=== PATIENT | male | born 1940 | race Caucasian/White ===

== ENCOUNTER → 2016-12-01 13:37 | Outpatient (CLI) | payer MEDICARE | END | disposition home or self-care (01) | LOC: D.US 13:37 | DX: J44.9 Chronic obstructive pulmonary disease, unspecified (principal); I65.29 Occlusion and stenosis of unspecified carotid artery ==

== ENCOUNTER 2017-01-21 10:58 | Outpatient (CLI) | payer MEDICARE ==
[~2017-01-21] VITALS: Ht 182.9 cm; Wt 86.4 kg
--- NOTE | ~2017-01-21 | HEMODYNAMI ---
PATIENT:VENUS GRIFFITHS MEDICAL RECORD: [id number] : 42 LOCATION:[facility] ADMISSION DATE: 01/21/17 Generatedon:01/21/201714:25 Patient name: VENUS GRIFFITHS Patient #: [id number] SSN: D OB: 1940 Date of study: 01/21/2017 Page: Of Hemodynamic Procedure Report Patient Data Patient Demographics Procedure consent was obtained First Name: VENUS Gender: Male Last Name: AYE : 1940 [facility] Initial: ROME Age: 76 year(s) Patient #: [id number] Race: Unknown Additional ID: [id number] Contact details [address]: [address] [place] [address] State: [place] City: [place] Zip code: [address] Past Medical History Allergies: No known allergies Admission Admission Data Admission Date: 01/21/2017 Admission Time: 10:58 Lab Results Lab Result Date: 01/21/2017 Lab Result Time: 0:00 Biochemistry Name Units Result Min Max BUN mg/dl 18 --(---*)-- 7 18 Creatinine mg/dl 0.9 --(-*--)-- 0.6 1.3 CBC Name Units Result Min Max Hemoglobin g/dl 15.9 --(--*-)-- 13.5 17.5 Procedure Procedure Types Cath Procedure Diagnostic Procedure C Coronaries w/Grafts Aortic Root Angiography Miscellaneous Procedures Moderate Sedation up to 45 minutes Procedure Description Procedure Date Procedure Date: 01/21/2017 Procedure Start Time: 13:55 Procedure End Time: 14:24 Procedure Staff Name Function Navin Fernández MD Performing Physician Natalie Bernal RN Nurse Darshan Gillespie RT Monitor Bryson Ovalle RT Scrub Caesar Montano RN Casing Fluid Tender Procedure Data Cath Procedure Fluoroscopy Diagnostic fluoroscopy Total fluoroscopy Time: 7.1 time: 7.1 min min Diagnostic fluoroscopy Total fluoroscopy dose: 850 dose: 850 mGy mGy Contrast Material Contrast Material Type Amount (ml) Isovue 300 139 Entry Location Entry Primary Successful Side Size Upsize Upsize Entry Closure Succes sful Closure Location (Fr) 1 (Fr) 2 (Fr) Remarks Device Remarks Femoral Right 5 Fr Exoseal artery Diagnostic catheters Device Type Used For End Catheter Placement Cordis 5Fr JL 4.0 Left Coronary Catheter (MP) Angiography Diagnostic Infinity 5Fr SVG Angiography IM catheter Diagnostic Infinity 5Fr SVG Angiography AR MOD Catheter Diagnostic Infinity 5Fr SVG Angiography AR 2 MOD catheter Cordis 5Fr Pigtail LV Angiography Catheter (MP) Procedure Complications No complications Procedure Medications Medication Administration Route Dosage Oxygen NC 2 l/min Heparin Flush Bag added to field 2 bags (1000units/500ml NS) Lidocaine 2% added to field 20 Versed I.V. 1 mg Fentanyl I.V. 50 mcg Versed I.V. 1 mg Fentanyl I.V. 50 mcg Fentanyl I.V. 50 mcg Hemodynamics Rest HGB: 15.9 (g/dl) Heart Rate: 49 (bpm) Snapshots Pre Cath Intra NCS Post Cath Vital Signs Time Heart Resp SPO2 NIBP (mmHg) Rhythm Pain Sedation Rate (ipm) (%) Status Level (bpm) 13:37:21 49 16 100 180/69(144) SB 0 (11) 10(A) , No pain 13:41:53 51 22 100 172/69(137) SB 0 (11) 10(A) , No pain 13:46:52 49 16 100 Measuring SB 0 (11) 10(A) , No pain 13:47:21 56 16 100 155/75(119) SB 0 (11) 10(A) , No pain 13:51:47 51 16 100 162/61(107) SB 0 (11) 10(A) , No pain 13:56:18 56 16 100 151/60(115) SB 0 (11) 9(A) , No pain 14:00:38 51 16 100 145/65(108) SB 0 (11) 9(A) , No pain 14:05:37 53 16 100 Measuring SB 0 (11) 9(A) , No pain 14:05:57 55 16 100 149/60(113) SB 0 (11) 9(A) , No pain 14:10:22 56 19 100 135/60(108) SB 0 (11) 9(A) , No pain 14:14:40 56 16 100 153/64(115) SB 0 (11) 9(A) , No pain 14:19:02 51 12 100 141/60(109) SB 0 (11) 9(A) , No pain Medications Time Medication Route Dose Verified Delivered Reason Notes Effec tiveness by by 13:38:50 Oxygen NC 2 Navin Natalie Per l/min Pradeep Bernal RN physician 13:38:57 Heparin Flush added 2 Navin Natalie used for Bag to bags Pradeep Bernal RN procedure (1000units/500ml field NS) 13:39:04 Lidocaine 2% added 20ml Navin Natalie used for to vial Pradeep Bernal RN procedure field 13:47:05 Versed I.V. 1 mg Navin Natalie for Pradeep Bernal RN sedation 13:47:11 Fentanyl I.V. 50 Navin Natalie for mcg Pradeep Bernal RN sedation 13:51:52 Versed I.V. 1 mg Navin Natalie for Pradeep Bernal RN sedation 13:51:55 Fentanyl I.V. 50 Navin Natalie for mcg Pradeep Bernal RN sedation 13:54:14 Fentanyl I.V. 50 Navin Natalie for mcg Pradeep Bernal RN sedation Procedure Log Time Note 13:15:59 Caesar Montano RN sent for patient. Start room use. 13:24:01 Time tracking: Regular hours 13:24:05 Plan of Care:Hemodynamics will remain stable., Cardiac rhythm will remain stable., Comfort level will be maintained., Respiratory function will remain adequate., Patient/ family verbilizes understanding of procedure., Procedure tolerated without complication., Recovers from procedure without complications.. 13:28:25 Patient received from Pre/Post Procedure Room to [facility] 2 Alert and oriented. Tansferred to table in Supine position. 13:28:28 Warm blankets applied, and shawn hugger turned on for patient comfort. 13:28:29 Correct patient and procedure confirmed by team. 13:28:30 Signed procedure consent form obtained from patient. 13:28:31 ECG and BP/O2 sat monitors applied to patient. 13:36:01 Vital chart was started 13:38:50 Oxygen 2 l/min NC was administered by Natalie Ponce RN; Per physician; 13:38:57 Heparin Flush Bag (1000units/500ml NS) 2 bags added to field was administered by Natalie Bernal RN; used for procedure; 13:39:04 Lidocaine 2% 20ml vial added to field was administered by Natalie Bernal RN; used for procedure; 13:41:09 Baseline sample Acquired. 13:41:12 Rhythm: sinus rhythm 13:41:13 Full Disclosure recording started 13:41:40 H&P Date Dictated: 01/01/2017 Within 30 days and on chart., H&P Addendum completed by physician on day of procedure. (MUST COMPLETE FOR ALL OUTPATIENTS). 13:41:41 Pre-procedure instructions explained to patient. 13:41:42 Pre-op teaching completed and patient verbalized understanding. 13:41:48 Family unavailable. 13:41:49 Patient NPO since Midnight. 13:41:56 Patient allergic to No known allergies 13:41:59 Is the patient allergic to Iodine/contrast media? No. 13:42:03 Is patient on blood thinner?Yes 13:42:13 Patient diabetic? No. 13:42:14 ----Pre-sedation anethsthesia assessment.---- 13:42:16 Previous problem with sedation/anesthesia? No ? 13:42:17 Snore? Yes 13:45:15 Sleep apnea? No 13:45:18 Deviated septum? No 13:45:20 Opens mouth fully? Yes 13:45:21 Sticks out tongue? Yes 13:45:28 Airway obstruction? Yes COPD 13:45:31 Dentures? No ? 13:45:34 Pre procedure: right dorsailis pedis pulse 2+ Normal; easily identifiable; not easily obliterated 13:45:37 Patient pain scale 0/10 ?. 13:45:46 IV patent on arrival in left forearm with 0.9% NaCl at 10ml/hr. 13:46:09 Lab Result : BUN 18 mg/dl 13:46:09 Lab Result : Creatinine 0.9 mg/dl 13:46:09 Lab Result : Hemoglobin 15.9 g/dl 13:46:12 Lab results completed and on chart. 13:46:15 Right groin area was prepped with chlora-prep and draped in sterile fashion 13:46:15 Alarms reviewed by Vernon Lr 13:46:16 Sharps counted by scrub and verified by R.N. 13:46:18 --------ALL STOP TIME OUT------ 13:46:18 Final Timeout: patient, procedure, and site verified with staff and physician. All members of the team are in agreement. 13:46:20 Right groin site verified by team. 13:46:22 Physical assessment completed. ASA score P 2 - A patient with mild systemic disease as per Navin Fernández MD. 13:46:26 Sedation plan: IV Moderate Sedation Versed, Fentanyl 13:47:05 Versed 1 mg I.V. was administered by Natalie Bernal RN; for sedation; 13:47:11 Fentanyl 50 mcg I.V. was administered by Natalie Bernal RN; for sedation; 13:47:51 Use device set Femoral Dx 13:47:53 Acist Syringe opened to sterile field. 13:47:53 Bag Decanter opened to sterile field. 13:47:53 Medline Cath Pack opened to sterile field. 13:47:54 Terumo 5Fr Penhook Sheath opened to sterile field. 13:47:54 St Wong 260cm J .035 wire opened to sterile field. 13:47:56 Acist Hand Control opened to sterile field. 13:47:56 Acist Manifold opened to sterile field. 13:47:57 Diagnostic Infinity 5Fr Multipack catheter opened to sterile field. 13:47:57 Tegaderm 4 x 4 opened to sterile field. 13:51:52 Versed 1 mg I.V. was administered by Natalie Bernal RN; for sedation; 13:51:55 Fentanyl 50 mcg I.V. was administered by Natalie Bernal RN; for sedation; 13:54:14 Fentanyl 50 mcg I.V. was administered by Natalie Bernal RN; for sedation; 13:55:30 Procedure started. 13:55:40 Local anesthetic to right femoral artery with Lidocaine 2% by Navin Fernández MD.INITIAL ACCESS ONLY 13:56:05 A 5 Fr sheath was inserted into the Right Femoral artery 13:56:15 Zero performed for pressure channel P1 13:57:11 A Cordis 5Fr JL 4.0 Catheter () was advanced over the wire and used for Left Coronary Angiography. 13:58:34 LCA angiography performed. 13:58:45 Procedure type changed to Cath procedure, Diagnostic procedure, LHC, Coronaries w/Grafts, Aortic Root Angiography, Miscellaneous Procedures, Moderate Sedation up to 45 minutes 13:58:57 Catheter removed. 14:00:01 A Diagnostic Infinity 5Fr IM catheter was advanced over the wire and used for SVG Angiography. 14:00:06 YANCEY to LAD angiography performed. 14:03:07 Catheter removed. 14:03:17 A Diagnostic Infinity 5Fr AR MOD Catheter was advanced over the wire and used for SVG Angiography. 14:06:02 RCA angiography performed. 14:06:03 Catheter removed. 14:06:39 A Diagnostic Infinity 5Fr AR 2 MOD catheter was advanced over the wire and used for SVG Angiography. 14:08:19 Catheter removed. 14:08:30 A Cordis 5Fr Pigtail Catheter (MP) was advanced over the wire and used for LV Angiography. 14:09:52 Aortic Root visualized 14:12:06 Catheter removed. 14:12:27 Cordis 5Fr Exoseal opened to sterile field. 14:13:58 5 Fr IM guide catheter was inserted over the wire 14:15:41 YANCEY to LAD angiography performed. 14:15:42 Catheter removed. 14:15:58 Contrast amount:Isovue 300 139ml. 14:16:07 Sheath removed intact; hemostasis achieved with Exoseal to the Right Femoral artery. 14:16:09 Procedure ended.(Physican Out) 14:16:27 Fluoroscopy time 07.10 minutes. 14:16:33 Fluoroscopy dose: 850 mGy 14:16:33 Flurop Dose total: 850 14:16:35 Sharps counted by scrub and verified by R.N. 14:16:36 Insertion/operative site no bleeding no hematoma. 14:16:39 Post-op/insertion site Right Femoral artery dressed using a 4 x 4 and Tegaderm. 14:16:42 Post right femoral artery:stable 14:16:44 Post Procedure Pulses reassessed and unchanged 14:16:48 Post procedure rhythm: sinus rhythm 14:16:49 Post procedure instruction explained to patient.Patient verbalizes understanding. 14:17:24 Procedure and supply charges have been captured, reviewed, submitted and are correct. 14:18:09 Procedure Complication : No complications 14:18:11 Vital chart was stopped 14:18:12 See physician's report for complete and final results. 14:18:16 Report given to Pre/Post Procedure Room. 14:18:20 Patient transfered to Pre/Post Procedure Room with Stretcher. 14:24:33 Procedure ended. 14:24:33 Full Disclosure recording stopped 14:24:36 End room use (Document Last) Device Usage Item Name Manufacture Quantity Catalog Hospital Part Current Minimal Lo t# / Number Charge Number Stock Stock Serial# Code Acist Acist 1 34466 661882 750871 669355 20 Syringe [employer] Bag Microtek 1 2002S 359928 33730 079538 5 Decanter [employer] Medline Cardinal 1 [id number] 694829 21349 811343 5 Cath Pack Health Terumo 5Fr Terumo 1 [id number] 662446 237806 425926 [address] St Wong 1 [id number] 353372 638401 654293 30 260cm J .035 wire Acist Hand Acist 1 72080 170078 583890 722645 5 Control [employer] Inc Acist Acist 1 43587 365670 653660 814713 5 Manifold [employer] Inc Diagnostic Cardinal 1 [id number] 857971 44107 175980 30 [facility] 5Fr Multipack catheter Tegaderm 4 3M 1 1626W 762205 787123 855308 5 x 4 Cordis 5Fr Cardinal 1 325497 5 JL 4.0 Health Catheter (MP) Diagnostic Cardinal 1 [id number] 506740 891987 958121 5 [facility] 5Fr IM catheter Diagnostic Cardinal 1 [id number] 024372 165837 787968 15 [facility] 5Fr AR MOD Catheter Diagnostic Cardinal 1 [id number] 063489 806426 189282 20 [facility] [facility] 5Fr AR 2 MOD catheter Cordis 5Fr Cardinal 1 689881 5 Pigtail Health Catheter (MP) Cordis 5Fr Cardinal 1 EX500 425685 890357 652814 10 Herotainment Signature Audit [place] Stage Time Signature Unsigned Intra-Procedure 01/21/2017 Darshan Gillespie 2:25:16 PM RT(R) Signatures Monitor : Darshan Gillespie RT Signature : Date : Time : [place] [id number] [address]
[2017-01-21] MEDS ORDERED: SPIRIVA18 MCG INH (11:21)
[2017-01-21] MEDS ORDERED: ACETAMINOPHEN325 MG PO (11:22)
[2017-01-21] MEDS ORDERED: LIPITOR40 MG PO (11:22)
[2017-01-21] MEDS ORDERED: PROVENTIL/2.5 MG/3 M INH (11:22)
[2017-01-21] MEDS ORDERED: GLUCOSAMINE & C1 CAP PO (11:23)
[2017-01-21] MEDS ORDERED: BAYER CHEWABLE81 MG PO (11:23)
[2017-01-21 11:38] VITALS: BP 168/48; Ht 182.9 cm; Wt 86.4 kg
[2017-01-21 11:45] LABS: BASOPHILS 0.3 % (0-2); EOSINOPHILS 1.9 % (0-7); HEMATOCRIT 47.5 % (42.0-54.0); HEMOGLOBIN 15.9 g/dL (13.5-17.5); IMMATURE GRANULOCYTES 0.3 % (0-5); LYMPHOCYTES 26.9 % (15-50); MCH 30.9 pg (26.0-34.0); MCHC 33.5 g/dL (31.0-37.0); MCV 92.4 fL (80.0-100.0); MEAN PLATELET VOLUME 10.9 fL (7.4-10.4); MONOCYTES 7.5 % (2-11); NEUTROPHILS 63.1 % (40-80); PLATELET COUNT 148 10x3/uL (130-400); RBC 5.14 10x6/uL (4.20-6.10); RDW 13.7 % (11.5-14.5); WBC 7.8 10x3/uL (4.8-10.8)
[2017-01-21 12:02] LABS: CALC OSMOLALITY 290 mosm/kg (275-300); CALCIUM 9.6 mg/dL (8.5-10.1); CARBON DIOXIDE 29.4 mmol/L (21.0-32.0); CHLORIDE - SERUM 109 mmol/L (98-107); CREATININE - SERUM 0.9 mg/dL (0.6-1.3); GLUCOSE 95 mg/dL (74-106); POTASSIUM - SERUM 4.9 mmol/L (3.5-5.1); SODIUM 145 mmol/L (136-145); UREA NITROGEN 18 mg/dL (7-18); eGFR NON AFRICAN AMERICAN 87 mL/min (90-120)
--- NOTE | 2017-01-21 14:41 | NUR ---
RECIEVED TO ROOM VIA STRETCHER FROM COPIER TECHNICIAN WITH 5 FR EXOSEAL R/GROIN CDI NO BLEEDING NO HEMATOMA NOTED. REPORTS OF A CLEAN CATH WITH A CONSULT FOR DR FERRARA IN PROGRESS. VSS WITH CHEST PAIN DENIED WILL MONITOR
--- NOTE | 2017-01-21 16:03 | NUR ---
REPOSITIONED TO SITTING WITH HOB UP 30 DEGREES. 5 FR EXOSEAL R/GROIN CDI NO BLEEDING NO HEMATOMA NOTED. SANDWICH AND SODA TO BEDSIDE
--- NOTE | 2017-01-21 16:21 | NUR ---
PIV REMOVED WITH DRESSING APPLIED 5 FR EXOSEAL R/GROIN CDI NO BLEEDING NO HEMATOMA NOTED. PATIENT UP TO GET DRESSED FOR DISCHARGE WITH CHEST PAIN DENIED
--- NOTE | 2017-01-21 16:34 | NUR ---
VERBAL AND WRITTEN DISCHARGE GONE OVER WITH PATIENT. LEFT VIA WC TO PARKING FOR TO DRIVE HOME CHEST PAIN DENIED WITH R/GROIN CDI
== END 2017-01-21 16:36 | disposition home or self-care (01) ==
LOC: D.CATH 10:58
PROVIDERS: Internal Medicine Cardiovascular Disease
DX: I25.10 Atherosclerotic heart disease of native coronary artery without angina pectoris (principal); I35.1 Nonrheumatic aortic (valve) insufficiency; I70.0 Atherosclerosis of aorta; Z01.812 Encounter for preprocedural laboratory examination

== ENCOUNTER → 2017-10-23 08:11 | Outpatient (CLI) | payer MEDICARE ==
[2017-01-21 11:38] VITALS: BMI 25.8
[~2017-10-23 08:11] MED LIST: ACETAMINOPHEN325 MG PO; BAYER CHEWABLE81 MG PO; GLUCOSAMINE & C1 CAP PO; LIPITOR40 MG PO; PROVENTIL/2.5 MG/3 M INH; SPIRIVA18 MCG INH
== END | disposition home or self-care (01) ==
LOC: D.RT 08:11
DX: J44.9 Chronic obstructive pulmonary disease, unspecified (principal)

== ENCOUNTER 2018-02-19 08:48 | Emergency (ER) | payer MEDICARE ==
[~2018-02-19] VITALS: Ht 182.9 cm; Wt 84.1 kg
[2018-02-19 08:49] VITALS: Ht 182.9 cm; Wt 84.1 kg
[2018-02-19] MEDS ORDERED: HYDROCODON-ACE1 EAC7 PO (09:09)
[2018-02-19] MEDS ORDERED: KEFLEX500 MG PO (09:10)
[2018-02-19 11:01] VITALS: BP 170/86
== END 2018-02-19 11:05 | disposition home or self-care (01) ==
LOC: D.ER 08:48
DX: Z89.022 Acquired absence of left finger(s) (principal); S68.121A Partial traumatic metacarpophalangeal amputation of left index finger, initial encounter; W27.8XXA Contact with other nonpowered hand tool, initial encounter; Y93.89 Activity, other specified; Y92.019 Unspecified place in single-family (private) house as the place of occurrence of the external cause; I10 Essential (primary) hypertension; J44.9 Chronic obstructive pulmonary disease, unspecified; F17.200 Nicotine dependence, unspecified, uncomplicated

== ENCOUNTER 2019-03-03 06:34 | Outpatient (CLI) | payer MEDICARE ==
[~2019-03-03] VITALS: Ht 182.9 cm; Wt 81.8 kg
--- NOTE | ~2019-03-03 | HEMODYNAMI ---
PATIENT:VENUS GRIFFITHS MEDICAL RECORD: [id number] : 42 LOCATION:[facility] ADMISSION DATE: 03/03/19 Generatedon:03/03/201910:55 Patient name: VENUS GRIFFITHS Patient #: [id number] SSN: [id number] : 1940 Date of study: 03/03/2019 Page: Of Hemodynamic Procedure Report Patient Data Patient Demographics Procedure consent was obtained First Name: VENUS Gender: Male Last Name: AYE : 1940 [facility] Initial: ROME Age: 78 year(s) Patient #: [id number] Race: SSN: [id number] Additional ID: [id number] Contact details Address: [address] [place] [address] State: [place] City: [place] Zip code: [address] Past Medical History Allergies: No known allergies Admission Admission Data Admission Date: 03/03/2019 Admission Time: 6:34 Arrival Date: 03/03/2019 Arrival Time: 9:00 Admit Source: Other Insurance Payor: Medicare Height (in.): 72 BSA: 2.05 (m2) Height (cm.): 182.88 BMI: 24.82 (kg/m2) Weight (lbs.): 183 Weight (kg.): 83.01 Lab Results Lab Result Date: 03/03/2019 Lab Result Time: 0:00 Biochemistry Name Units Result Min Max BUN mg/dl 18 --(---*)-- 7 18 Creatinine mg/dl 1 --(--*-)-- 0.6 1.3 CBC Name Units Result Min Max Hemoglobin g/dl 16.5 --(--*-)-- 13.5 17.5 Procedure Procedure Types Cath Procedure Diagnostic Procedure LHC LHC w/Coronaries Aortic Root Angiography Sedation Charges Moderate Sedation up to 15 minutes Procedure Description Procedure Date Procedure Date: 03/03/2019 Procedure Start Time: 10:33 Procedure End Time: 10:53 Procedure Staff Name Function Navin Fernández MD Performing Physician Carmelita Adams RT Monitor Shukri Bermeo RT Scrub Ameena Flores RN Nurse Procedure Data Cath Procedure Fluoroscopy Diagnostic fluoroscopy Total fluoroscopy Time: 5.1 time: 5.1 min min Diagnostic fluoroscopy Total fluoroscopy dose: 844 dose: 844 mGy mGy Contrast Material Contrast Material Type Amount (ml) Isovue 300 106 Entry Location Entry Primary Successful Side Size Upsize Upsize Entry Closure Succes sful Closure Location (Fr) 1 (Fr) 2 (Fr) Remarks Device Remarks Femoral Right 5 Fr Exoseal artery Estimated blood loss: 5 ml Diagnostic catheters Device Type Used For End Catheter Placement MULTIPACK JL 4.0 5Fr Left Coronary catheter Angiography DIAGNOSTIC JL 5 5Fr Left Coronary catheter ([id number]) Angiography DIAGNOSTIC AR MOD 5Fr Multi-vessel Catheter ([id number]) Angiography MULTIPACK Pigtail 5 Fr LV Angiography catheter DIAGNOSTIC IM 5Fr Multi-vessel catheter ([id number]) Angiography Procedure Complications No complications Procedure Medications Medication Administration Route Dosage 0.9% NaCl I.V. 100 ml/hr Oxygen etCO2 Nasal cannula 2 l/min Lidocaine 2% added to field 20 Heparin Flush Bag added to field 2 bags (1000units/500ml NS) Versed I.V. 2 mg Fentanyl I.V. 50 mcg Fentanyl I.V. 50 mcg Hemodynamics Rest BSA: 2.05 (m2) HGB: 16.5 (g/dl) O2 Consumption: Estimated: 223.38 (ml/min) O2 Co nsumption indexed: Estimated:108.97 (ml/min/m) Heart Rate: 55 (bpm) Snapshots Pre Cath Intra NCS Post Cath Vital Signs Time Heart Resp SPO2 etCO2 NIBP (mmHg) Rhythm Pain Sedation Rate (ipm) (%) (mmHg) Status Level (bpm) 10:16:58 55 16 99 33.7 178/66(144) SB 0 (11) 10(A) , No pain 10:21:36 50 20 100 31.4 175/60(140) SB 0 (11) 10(A) , No pain 10:26:06 51 15 99 40.5 157/61(130) SB 0 (11) 10(A) , No pain 10:30:39 52 24 99 35.9 162/53(133) SB 0 (11) 9(A) , No pain 10:35:38 49 11 99 13.5 Measuring SB 0 (11) 9(A) , No pain 10:36:05 50 16 99 1.5 151/60(115) SB 0 (11) 9(A) , No pain 10:41:04 51 12 99 36.7 Measuring SB 0 (11) 9(A) , No pain 10:41:18 53 14 98 22.4 143/52(110) SB 0 (11) 9(A) , No pain 10:45:40 59 12 99 39.7 145/57(111) SB 0 (11) 9(A) , No pain 10:50:06 58 11 99 41.2 142/54(118) SB 0 (11) 10(A) , No pain Medications Time Medication Route Dose Verified Delivered Reason Notes Eff ectiveness by by 10:15:45 0.9% NaCl I.V. 100 Navin Ameena used for ml/hr Pradeep Flores manager environmental services 10:15:52 Oxygen etCO2 2 Navin Ameena used for Nasal l/min Pradeep Flores procedure cannula RN 10:15:58 Lidocaine 2% added 20ml Navin Navin for local to vial Pradeep Fernández MD anesthetic field 10:16:02 Heparin Flush added 2 Navin Navin used for Bag to bags Pradeep Fernández MD procedure (1000units/500ml field NS) 10:22:12 Versed I.V. 2 mg Navin Ameena for Pradeep Flores sedation RN 10:22:22 Fentanyl I.V. 50 Navin Ameena for mcg Pradeep Flores sedation RN 10:27:00 Fentanyl I.V. 50 Navin Ameena for mcg Pradeep Flores sedation account analyst Log Time Note 9:59:02 Informed consent obtained and on chart 9:59:06 Diagnostic Cath Status : Elective 9:59:55 Ameena Flores RN sent for patient. Start room use. 9:59:56 Time tracking: Regular hours (M-F 7:00 - 5:00) 10:00:00 Plan of Care:Hemodynamics will remain stable., Cardiac rhythm will remain stable., Comfort level will be maintained., Respiratory function will remain adequate., Patient/ family verbilizes understanding of procedure., Procedure tolerated without complication., Recovers from procedure without complications.. 10:01:44 Patient Height : 72 inches 10:01:48 Patient Weight : 183 lbs 10:01:48 Admit Source: Other 10:05:59 Insurance Payor : Medicare 10:08:58 Arrival Date: 03/03/2019 9:00:00 AM 10:11:52 Lab Result : BUN 18 mg/dl 10:11:52 Lab Result : Hemoglobin 16.5 g/dl 10:11:52 Lab Result : Creatinine 1 mg/dl 10:12:00 Patient received from Pre/Post Procedure Room to CCL 2 Alert and oriented. Tansferred to table in Supine position. 10:12:02 Warm blankets applied, and shawn hugger turned on for patient comfort. 10:12:02 Correct patient and procedure confirmed by team. 10:12:03 ECG and BP/O2 sat monitors applied to patient. 10:15:34 Vital chart was started 10:15:45 0.9% NaCl 100 ml/hr I.V. was administered by Ameena Flores RN; used for procedure; 10:15:52 Oxygen 2 l/min etCO2 Nasal cannula was administered by Ameena Flores RN; used for procedure; 10:15:58 Baseline sample Acquired. 10:15:58 Lidocaine 2% 20ml vial added to field was administered by Navin Fernández MD; for local anesthetic; 10:16:02 Heparin Flush Bag (1000units/500ml NS) 2 bags added to field was administered by Navin Fernández MD; used for procedure; 10:16:02 Rhythm: sinus rhythm 10:16:04 Full Disclosure recording started 10:16:09 H&P Date Dictated: 03/03/2019 Within 30 days and on chart., H&P Addendum completed by physician on day of procedure. (MUST COMPLETE FOR ALL OUTPATIENTS). 10:16:10 Pre-procedure instructions explained to patient. 10:16:11 Pre-op teaching completed and patient verbalized understanding. 10:16:12 Family in waiting room. 10:16:13 Patient NPO since Midnight. 10:16:16 Is the patient allergic to Iodine/contrast media? No. 10:16:17 Was the patient premedicated? No 10:17:02 Is patient on blood thinner?No 10:17:04 Patient diabetic? No. 10:17:06 Previous problem with sedation/anesthesia? No ? 10:17:08 Snore? Yes 10:17:09 Sleep apnea? No 10:17:10 Deviated septum? No 10:17:11 Opens mouth fully? Yes 10:17:12 Sticks out tongue? Yes 10:17:14 Airway obstruction? Yes copd 10:17:18 Dentures? Yes in tight 10:17:21 Pre procedure: right dorsailis pedis pulse 2+ Normal; easily identifiable; not easily obliterated 10:17:23 Pre procedure: left dorsailis pedis pulse 2+ Normal; easily identifiable; not easily obliterated 10:17:25 Patient pain scale 0/10 ?. 10:17:31 IV patent on arrival in left forearm with 0.9% NaCl at [facility]. 10:17:33 Lab results completed and on chart. 10:17:37 Right groin area was prepped with chlora-prep and draped in sterile fashion 10:17:38 Alarms reviewed by R. N. 10:17:38 Sharps counted by scrub and verified by R.N. 10:18:14 ACC Patient presents with Symptoms unlikely to be ischemic CCS Anginal Class 2--Slight limitation of ordinary activity. 10:18:22 Procedure Status Elective Heart Cath (OP). 10:18:30 Use device set Femoral Dx 10:18:31 ACIST Syringe (51673) opened to sterile field. 10:18:32 Bag Decanter (2002S) opened to sterile field. 10:18:32 Medline Cath Pack ([id number]) opened to sterile field. 10:18:33 ACIST Hand Control (59738) opened to sterile field. 10:18:34 ACIST Manifold (55414) opened to sterile field. 10:18:34 DIAGNOSTIC Multipack 5Fr catheter set ([id number]) opened to sterile field. 10:18:34 Tegaderm 4 x 4 (1626W) opened to sterile field. 10:18:36 SHEATH 5FR [place] ([id number]) opened to sterile field. 10:18:37 DAXALD Guide Wire (841-397) opened to sterile field. 10:21:12 Physician arrived 10:21:12 --------ALL STOP TIME OUT------ 10:21:13 Final Timeout: patient, procedure, and site verified with staff and physician. All members of the team are in agreement. 10:21:15 Right groin site verified by team. 10:21:19 Fire Safety Assessment: A--An alcohol-based skin anteseptic being used preoperatively., C--Open oxygen or nitrous oxide is being used., D--An ESU, laser, or fiber-optic light is being used. 10:21:25 Physical assessment completed. ASA score P 2 - A patient with mild systemic disease as per Navin Fernández MD. 10:22:04 2) 60-89 Mildly reduced kidney function, and other findings (as for stage 1) point to kidney disease. 10:22:12 Versed 2 mg I.V. was administered by Ameena Flores RN; for sedation; 10:22:18 Maximum allowable contrast dose (3.7 X eGFR X 0.75)213 ml. 10:22:22 Fentanyl 50 mcg I.V. was administered by Ameena Flores RN; for sedation; 10::22 Sedation plan: IV Moderate Sedation Medication:Versed, Fentanyl 10:27:00 Fentanyl 50 mcg I.V. was administered by Ameena Flores RN; for sedation; 10:33:39 Procedure started. 10:33:46 Local anesthetic to right femoral artery with Lidocaine 2% by Navin Fernández MD.INITIAL ACCESS ONLY 10:36:11 A 5 Fr sheath was inserted into the Right Femoral artery 10:36:16 A MULTIPACK JL 4.0 5Fr catheter was advanced over the wire and used for Left Coronary Angiography. 10:39:05 Catheter removed. unable to cannulate vessel. 10:39:15 A DIAGNOSTIC JL 5 5Fr catheter ([id number]) was advanced over the wire and used for Left Coronary Angiography. 10:39:43 LCA angiography performed. 10:39:46 Injector settings: Ml/sec: 3, Volume: 6, 10:41:05 Catheter removed. 10:41:54 A DIAGNOSTIC AR MOD 5Fr Catheter ([id number]) was advanced over the wire and used for Multi-vessel Angiography. 10:42:06 RCA angiography performed. 10:42:12 Injector settings: Ml/sec: 3, Volume: 6, 10:43:17 Catheter removed. 10:43:25 A MULTIPACK Pigtail 5 Fr catheter was advanced over the wire and used for LV Angiography. 10:44:11 Aortic Root visualized 10:44:39 Catheter removed. 10:44:58 A DIAGNOSTIC IM 5Fr catheter ([id number]) was advanced over the wire and used for Multi-vessel Angiography. 10:48:03 YANCEY angiography performed. 10:51:14 Injector settings: Ml/sec: 3, Volume: 6, 10:51:15 Catheter removed. 10:51:16 ACCDominant side:Co-Dominant 10:51:39 EXOSEAL 5Fr (EX500) opened to sterile field. 10:52:08 Sheath removed intact; hemostasis achieved with Exoseal to the Right Femoral artery. 10:52:10 Procedure ended.(Physican Out) 10:52:41 Fluoroscopy time 05.10 minutes. 10:52:45 Flurop Dose total: 844 10:52:45 Fluoroscopy dose: 844 mGy 10:52:51 Dose Area Product 35737 mGy/cm. 10:52:55 Contrast amount:Isovue 300 106ml. 10:52:57 Sharps counted by scrub and verified by R.N. 10:53:00 Insertion/operative site no bleeding no hematoma. 10:53:02 Post-op/insertion site Right Femoral artery dressed using a 4 x 4 and Tegaderm. 10:53:06 Post procedure rhythm: unchanged. 10:53:09 Estimated blood loss: 5 ml 10:53:10 Post procedure instruction explained to patient.Patient verbalizes understanding. 10:53:11 Patient needs reinforcement of post procedure teaching. 10:53:18 Procedure type changed to Cath procedure, Diagnostic procedure, LHC, LHC w/Coronaries, Aortic Root Angiography, Sedation Charges, Moderate Sedation up to 15 minutes 10:53:20 Procedure and supply charges have been captured, reviewed, submitted and are correct. 10:53:24 Procedure Complication : No complications 10:53:26 Vital chart was stopped 10:53:27 See physician's report for complete and final results. 10:53:29 Report given to Pre/Post Procedure Room. 10:53:40 Patient transfered to Pre/Post Procedure Room with Stretcher. 10:53:59 Procedure ended. 10:53:59 Full Disclosure recording stopped 10:54:04 End room use (Document Last) Device Usage Item Name Manufacture Quantity Catalog Hospital Part Current Minimal L ot# / Number Charge Number Stock Stock Serial# Code ACIST Acist 1 47148 414153 237855 125954 20 Syringe Medical (54829) Systems Inc Bag Microtek 1 2001S 371341 13817 950584 5 Decanter Medical Inc. () Medline Medline 1 [id number] 802000 25647 414347 5 Cath Pack ([id number]) ACIST Hand Acist 1 55461 072510 520850 146939 5 Control Medical (90304) Systems Inc ACIST Acist 1 92405 987875 797961 200593 5 Manifold Medical (08316) Systems Inc DIAGNOSTIC Cardinal 1 [id number] 188644 63580 926098 30 Multipack Health 5Fr catheter set (EL5876) Tegaderm 4 3M 1 1626W 511383 878299 570045 5 x 4 (1626W) SHEATH 5FR Terumo 1 [id number] 719259 670348 113675 5 [place] (CRY683) EMERALD Cardinal 1 502-455 546182 571530 872650 5 Guide Wire [facility] (502455) MULTIPACK Cardinal 1 312581 5 JL 4.0 5Fr Health catheter DIAGNOSTIC Cardinal 1 [id number] 393960 761645 872502 5 JL 5 5Fr Health catheter ([id number]) DIAGNOSTIC Cardinal 1 [id number] 634627 507540 258902 15 AR MOD 5Fr Health Catheter (775596E) MULTIPACK Cardinal 1 465417 5 Pigtail 5 Health Fr catheter DIAGNOSTIC Cardinal 1 [id number] 165506 571498 302680 5 IM 5Fr Health catheter ([id number]) EXOSEAL 5Fr Cardinal 1 EX500 920172 173278 972711 10 (EX500) Health Signature Audit [place] Stage Time Signature Unsigned Intra-Procedure 03/03/2019 Carmelita Adams 10:55:03 AM RT(R) Signatures Performing Physician : Signature : Navin Fernández MD Date : Time : Monitor : Carmelita Adams RT Signature : Date : Time : Nurse : Ameena Flores RN Signature : Date : Time : [address] [place] [address]
[~2019-03-03 06:34] MED LIST changes: +HYDROCODON-ACE1 EAC7 PO; +KEFLEX500 MG PO
[2019-03-03] MEDS ORDERED: WELLBUTRIN SR150 MG PO (07:18)
[2019-03-03] MEDS ORDERED: TESSALON PERLE100 MG PO (07:18)
[2019-03-03] MEDS ORDERED: VITAMIN D2000 UNIT PO (07:19)
[2019-03-03] MEDS ORDERED: SPIRIVA RESPIMAT4 G1 INH (07:20)
[2019-03-03] MEDS ORDERED: PROVENTIL/2.5 MG/3 M INH (07:20)
[2019-03-03] MEDS ORDERED: SYMBICORT 16010.2 GM INH (07:21)
[2019-03-03 07:29] VITALS: BP 157/66; Ht 182.9 cm; Wt 81.8 kg
[2019-03-03 07:40] LABS: BASOPHILS 0.2 % (0-2); EOSINOPHILS 1.5 % (0-7); HEMATOCRIT 47.4 % (42.0-54.0); HEMOGLOBIN 16.5 g/dL (13.5-17.5); IMMATURE GRANULOCYTES 0.4 % (0-5); LYMPHOCYTES 21.9 % (15-50); MCH 31.1 pg (26.0-34.0); MCHC 34.8 g/dL (31.0-37.0); MCV 89.4 fL (80.0-100.0); MEAN PLATELET VOLUME 11.5 fL (7.4-10.4); MONOCYTES 6.6 % (2-11); NEUTROPHILS 69.4 % (40-80); PLATELET COUNT 146 10x3/uL (130-400); RDW 14.4 % (11.5-14.5); WBC 9.5 10x3/uL (4.8-10.8)
[2019-03-03 08:32] LABS: ALT (SGPT) 20 U/L (10-68); CALC OSMOLALITY 288 mosm/kg (275-300); CALCIUM 8.9 mg/dL (8.5-10.1); CARBON DIOXIDE 29.3 mmol/L (21.0-32.0); CHLORIDE - SERUM 108 mmol/L (98-107); CHOL - HDL RATIO 5.7 ratio (2.3-4.9); CHOLESTEROL, TOTAL 222 mg/dL (0-200); GLUCOSE 90 mg/dL (74-106); HDL CHOLESTEROL 39 mg/dL (32-96); LDL CHOLESTEROL 169 mg/dL (0-100); LDL-HDL RATIO 4.3 ratio (1.5-3.5); POTASSIUM - SERUM 4.5 mmol/L (3.5-5.1); SODIUM 144 mmol/L (136-145); TRIGLYCERIDE 71 mg/dL (30-200); UREA NITROGEN 18 mg/dL (7-18); eGFR NON AFRICAN AMERICAN 77 mL/min (90-120)
--- NOTE | 2019-03-03 11:05 | NUR ---
PT ARRIVED BY STRETCHER. PLACED ON MONITORS. ASSESSMENT COMPLETED. VSS. FAMILY AT BEDSIDE. CALL LIGHT WITHIN REACH.
--- NOTE | 2019-03-03 11:20 | NUR ---
RIGHT GROIN DRESSING C/D/I. NO S/S OF HEMATOMA NOTED. CALL LIGHT WITHIN REACH. FAMILY AT BEDSIDE. VSS.
--- NOTE | 2019-03-03 11:51 | NUR ---
DR. SORIANO ROUNDED AND SPOKE WITH PT AND PT'S FAMILY. UPDATED THEM ON PLAN OF CARE. RIGHT GROIN DRESSING C/D/I. NO S/S OF HEMATOMA NOTED. CALL LIGHT WITHIN REACH.
--- NOTE | 2019-03-03 12:05 | NUR ---
HEAD OF BED INC TO 30 DEGREES. TOLERATED WELL. RIGHT GROIN DRESSING C/D/I. NO S/S OF HEMATOMA NOTED. VSS. CALL LIGHT WITHIN REACH. PT SET UP WITH SANDWICH TRAY AND DRINK. DENIES NAUSEA.
--- NOTE | 2019-03-03 12:30 | NUR ---
PT RESTING COMFORTABLY. RIGHT GROIN DRESSING C/D/I. NO S/S OF HEMATOMA NOTED. LEFT ARM PIV D/C'D WITH CATH TIP INTACT. PT TOLERATED WELL. INSTRUCTED TO GET DRESSED. FAMILY AT BEDSIDE FOR ASSISTANCE. CALL LIGHT WITHIN REACH.
--- NOTE | 2019-03-03 13:03 | NUR ---
DISCUSSED DISCHARGE INSTRUCTIONS WITH PT AND PT'S FAMILY. THEY VOICED UNDERSTANDING.
--- NOTE | 2019-03-03 13:10 | NUR ---
PT AMBULATED TO RESTROOM. VOIDED WITHOUT DIFFICULTY. REFUSED WHEELCHAIR. AMBULATED TO VEHICLE. NO S/S OF DISTRESS NOTED. ALL BELONGINGS AND PAPERWORK IN HAND.
== END 2019-03-03 13:10 | disposition home or self-care (01) ==
LOC: D.CATH 06:34
PROVIDERS: ATTEND Internal Medicine Cardiovascular Disease
DX: I25.119 Atherosclerotic heart disease of native coronary artery with unspecified angina pectoris (principal); I35.0 Nonrheumatic aortic (valve) stenosis; Z01.812 Encounter for preprocedural laboratory examination

== ENCOUNTER → 2019-07-22 07:26 | Outpatient (CLI) | payer MEDICARE ==
[2019-03-03 07:29] VITALS: BMI 24.4
[~2019-07-22 07:26] MED LIST changes: +SPIRIVA RESPIMAT4 G1 INH; +SYMBICORT 16010.2 GM INH; +TESSALON PERLE100 MG PO; +VITAMIN D2000 UNIT PO; +WELLBUTRIN SR150 MG PO
== END | disposition home or self-care (01) ==
LOC: D.RT 05-16 15:00
PROVIDERS: ATTEND Internal Medicine Pulmonary Disease
DX: J44.9 Chronic obstructive pulmonary disease, unspecified (principal)